=== PATIENT | female | born 1985 | race Hispanic/Latino ===

== ENCOUNTER 2016-05-12 10:54 | Emergency (ER) | payer OTHER ==
[~2016-05-12] VITALS: Ht 165.1 cm; Wt 52.2 kg
[~2016-05-12 10:54] MED LIST: AMOXICILLIN875 M1 PO; BACTRIM DS 8001 TAB PO; CLEOCIN100 MG VG; DIFLUCAN150 M1 PO; FLAG500 PO; FLAGYL500 MG PO; MOTRIN 600 MG600 MG PO; ORTHO TRI-CYCLE1 TA2 PO; ORTHO TRI-CYCLEN LO; PERCOCET 325 MG1 TA2 PO; PERCOCET 5-3251 EACH PO; PRILOSEC OTC20 M1 PO; VICODIN 5-3001 EACH PO; [UNRECOGNIZED DRUG - OTHER] TOP
--- NOTE | 2016-05-12 12:46 | ED HEAD/FACIAL INJ COMPLAINT ---
History of Present Illness General Chief Complaint: Facial or Head Injury Stated Complaint: LAC TO HEAD, +NAUSEA, STILL BLEEDING Source: patient, old records Exam Limitations: no limitations Vital Signs & Intake/Output Vital Signs & Intake/Output Vital Signs Date Time Temp Pulse Resp B/P Pulse O2 O2 Flow FiO2 Ox Delivery Rate 05/12 1300 99 05/12 1300 96.7 57 16 102/62 99 Room Air 05/12 1059 97.3 60 20 103/64 98 Room Air Allergies Coded Allergies: NO KNOWN ALLERGIES (08/31/14) Reconcile Medications Amoxicillin 875 MG TABLET 1 TAB PO BID INFECTION Clindamycin Phosphate (Cleocin) 100 MG SUPP.VAG 1 SUP VG QPM bv Fluconazole (Diflucan) 150 MG TABLET 1 TAB PO ONCE vaginal discharge take in 1 week if you continue with discharge Hydrocodone/Acetaminophen (Vicodin 5-300 MG Tablet) 1 EACH TABLET 1 TAB PO Q8 PRN BREAKTHROUGH PAIN Omeprazole Magnesium (Prilosec Otc) 20 MG TABLET.DR 1 TAB PO DAILY REFLUX Oxycodone HCl/Acetaminophen (Percocet 5-325 MG Tablet) 5 MG-325 MG TABLET 1 TAB PO 4XDP PRN PAIN FOUR...[id number] Triage Note: HIT TOP OF HEAD ON DAUGHTERS BUNK BED YESTERDAY AND IT STARTED BLEEDING AGAIN TODAY. DRIED BLOOD NOTED TO TOP OF HEAD IN TRIAGE. PT STATES SHE FELT NAUSEOUS THIS MORNING Triage Nurses Notes Reviewed? yes Onset: 1.5 DAYS Severity: mild, moderate Severity Numbers: 5 Location: global Method of Injury: direct blow Loss of Consciousness: no loss of consciousness Associated Symptoms: DENIES : No Patient currently breastfeeds: No HPI: 30-year-old female presents emergency room complaining of a generalized headache constant for the past 1-1/2 day associated with feeling "foggy and intermittently nauseous. The patient states that she hit the top of her head against her daughter's bed last night and there is no loss of consciousness however she states it was bleeding and she noticed some blood on a tissue today when she touched it. She has not taken anything for her symptoms she denies any other injury no neck or back pain. Patient denies any vision changes vomiting. No modifying factors or associated symptoms otherwise. She's reports having difficulty concentrating today (RAÚL TAYLOR,JORDAN) Past History Travel History Traveled to [place] past 21 day No Medical History Any Pertinent Medical History? 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 No (JORDAN HOLLINS) Review of Systems Review of Systems Constitutional: Reports: see HPI. All Other Systems: Reviewed and Negative Comments Review of systems: See HPI, All other systems negative. Constitutional, no chills no fever, no malaise HEENT: No visual changes no sore throat no congestion Cardiovascular: No chest pain , no palpitation Skin, no rashes, no change in skin Respiratory: No dyspnea no cough no sputum GI: No nausea no vomiting, no diarrhea, : No dysuria Muscle skeletal: No joint pain, no back pain, no neck pain, Neurologic: No numbness headache Psych: No stress Heme/endocrine: No bruising no bleeding Immunology: No lymphadenopathy, (JORDAN HOLLINS) Physical Exam Physical Exam General Appearance: well developed/nourished, alert, awake Cranial Nerves: normal hearing, normal speech, PERRL Comments: Well-developed well-nourished patient in no apparent distress. HEENT: Superficial abrasion noted to the right parietal scalp, there is no active bleeding dry blood noted there is no laceration, the face and rest and scalp are atraumatic no hematoma no ecchymosis mild tenderness on palpation pupils are equal round reactive to light extraocular motion intact Neck: Supple, FROM, Back: FROM, Nontender Cardiovascular: Regular rate and rhythms no murmurs rubs Respiratory: No respiratory distress. Patient speaking in full complete sentences. Breath sounds clear to auscultation bilaterally: NO W/R/R Extremities: full range of motion Neuro: Alert and oriented x3 Skin: Warm & dry;No appreciable rash on exposed skin Psych: Mood affect normal, normal memory normal judgment. (JORDAN HOLLINS) Progress Differential Diagnosis: ICH, skull fracture, CONCUSSION Plan of Care: Current Medications Sig/Ngozi Start time Last Medication Dose Stop Time Status Admin Ibuprofen 600 MG ONCE ONE 05/12 1300 UNVr (Motrin) 05/12 1301 The wound was irrigated there is no laceration requiring closure with ranjeet I discussed the patient's this symptoms have been greater than 12 hours I discussed with her most likely etiology is concussion I do not believe she'll require CT imaging I discussed with her need for brain rest I had an extensive conversation regarding need for close follow up with their primary care physician this week as well as return precautions. I answered all of their questions, they feel comfortable with the plan and follow-up care. (JORDAN HOLLINS) Departure Departure Time of Disposition: 1251 Disposition: HOME OR SELF CARE Condition: Stable Clinical Impression Primary Impression: Minor head injury without loss of consciousness Secondary Impressions: Post concussive syndrome, Scalp abrasion Referrals: SARAH JOE (PCP/Family) Additional Instructions: Tylenol or Motrin every 4-6 hours, brain rest limited TV cell phone computer usage as this may make her symptoms worse, follow-up with her primary care physician this week return anytime sooner with any concerns. Departure Forms: Customer Survey General Discharge Information (JORDAN HOLLINS) PA/TECHNICAL ADJUSTER Co-Sign Statement Statement: ED Attending supervision documentation- [] I saw and evaluated the patient. I have also reviewed all the pertinent lab results and diagnostic results. I agree with the findings and the plan of care as documented in the PA's/TECHNICAL ADJUSTER's documentation. x I have reviewed the ED Record and agree with the PA's/TECHNICAL ADJUSTER's documentation. [] Additions or exceptions (if any) to the PAs/TECHNICAL ADJUSTER's note and plan are summarized below: [] (SYBIL LOWERY,TC)
[2016-05-12 13:00] VITALS: BP 102/62
== END 2016-05-12 13:12 ==
LOC: ERH 10:54
DX: S09.90XA Unspecified injury of head, initial encounter (principal); F07.81 Postconcussional syndrome; S00.01XA Abrasion of scalp, initial encounter; W22.03XA Walked into furniture, initial encounter; Y93.9 Activity, unspecified; Y92.9 Unspecified place or not applicable

== ENCOUNTER 2017-09-15 22:18 | Emergency (ER) | payer OTHER ==
[2017-09-16] MEDS ORDERED: PERCOCET 5-3251 EACH PO (00:36)
--- NOTE | 2017-09-16 00:38 | ED GENERAL ADULT ---
History of Present Illness General Chief Complaint: Sore Throat, Dental Pain Stated Complaint: "RT SIDE DENTAL PAIN" Source: patient Exam Limitations: no limitations Vital Signs & Intake/Output Vital Signs & Intake/Output Vital Signs Date Time Temp Pulse Resp B/P B/P Pulse O2 O2 Flow FiO2 Mean Ox Delivery Rate 09/15 2221 97.4 69 18 104/68 98 Room Air Allergies Coded Allergies: NO KNOWN ALLERGIES (08/31/14) Reconcile Medications Amoxicillin 875 MG TABLET 1 TAB PO BID INFECTION Clindamycin Phosphate (Cleocin) 100 MG SUPP.VAG 1 SUP VG QPM bv Fluconazole (Diflucan) 150 MG TABLET 1 TAB PO ONCE vaginal discharge take in 1 week if you continue with discharge Hydrocodone/Acetaminophen (Vicodin 5-300 MG Tablet) 1 EACH TABLET 1 TAB PO Q8 PRN BREAKTHROUGH PAIN Omeprazole Magnesium (Prilosec Otc) 20 MG TABLET.DR 1 TAB PO DAILY REFLUX Oxycodone HCl/Acetaminophen (Percocet 5-325 MG Tablet) 5 MG-325 MG TABLET 1 TAB PO 4XDP PRN PAIN FOUR...[id number] Oxycodone HCl/Acetaminophen (Percocet 5-325 MG Tablet) 5 MG-325 MG TABLET 1 TAB PO Q4-6 PRN PRN pain Triage Note: PT TO TRIAGE C/O R SIDED DENTAL PAIN S/P TOOTH FILLING YESTERDAY. PT STATES PAIN IS UNBEARABLE. PT TALKED TO DENTIST AND HAS APPT WEDNESDAY. STATES "THAT'S NOT GOING TO WORK." Triage Nurses Notes Reviewed? yes Onset: Gradual Duration: week(s): Timing: constant : No Patient currently breastfeeds: No HPI: 31 y/o otherwise healthy female presenting with right sided dental pain x several weeks Pt reports she saw her dentist and was told she needed multiple fillings on the right and left. She underwent the right fillings yesterday, and is scheduled for the left fillings on Wednesday, but still has persistent right sided pain. Has been using motrin without relief. Denies fevers or drainage. (Temi Roth) Past History Travel History Traveled to [place] past 21 day No Medical History Any Pertinent Medical History? 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 No (Temi Roth) Review of Systems Review of Systems Constitutional: Reports: no symptoms. EENTM: Reports: see HPI. Respiratory: Reports: no symptoms. Cardiovascular: Reports: no symptoms. GI: Reports: no symptoms. Genitourinary: Reports: no symptoms. Musculoskeletal: Reports: no symptoms. Skin: Reports: no symptoms. Neurological/Psychological: Reports: no symptoms. Hematologic/Endocrine: Reports: no symptoms. Immunologic/Allergic: Reports: no symptoms. All Other Systems: Reviewed and Negative (Temi Roth) Physical Exam Physical Exam General Appearance: well developed/nourished, alert, awake, appears uncomfortable holding her right jaw Head: atraumatic, normal appearance Eyes: Bilateral: normal appearance. Ears, Nose, Throat: pt has right lower wisdom tooth that is erupting on an angle and becoming impacted, +TTP over the right lower wisdom tooth. No TTP with tooth thrust over the remaining right lower teeth. Normal gingiva. No abcess or drainage. Remainder of oral cavity exam is unremarkable. Neck: normal inspection, no edema Respiratory: normal breath sounds, lungs clear Cardiovascular: regular rate/rhythm Gastrointestinal: soft, non-tender Back: normal inspection Extremities: normal inspection Neurologic/Psych: awake, alert, oriented x 3, normal gait, normal mood/affect Skin: intact, normal color, warm/dry Core Measures ACS in differential dx? No CVA/TIA Diagnosis: No Sepsis Present: No Sepsis Focused Exam Completed? No (Temi Roth) Progress Differential Diagnoses I considered the following diagnoses in my evaluation of the patient: [impacted [place] tooth vs gingival abscess vs apical abscess vs dental fx] Plan of Care: Pain likel 2/2 erupting/impacted right lower wisdom tooth, given rx percocet for pain and instrcuted to f/u with dentits as scheduled on Wednesday. Low concern for infection, therefore abx deferred at this time. Given strict return precautions. Initial ED EKG: none (Temi Roth) Departure Departure Disposition: HOME OR SELF CARE Condition: Stable Clinical Impression Primary Impression: Pain, dental Referrals: Anita Whittaker APRN (PCP/Family) Additional Instructions: Continue using 800 mg of ibuprofen as needed for pain. You may combine this medication with Percocet for additional pain relief. Follow-up with your dentist as scheduled on Wednesday. Return to the emergency department for any normal worsening symptoms. Departure Forms: Customer Survey General Discharge Information Prescriptions: Current Visit Scripts Oxycodone HCl/Acetaminophen (Percocet 5-325 MG Tablet) 1 TAB PO Q4-6 PRN PRN pain #12 TAB (Tmei Roth) PA/SQUARE DANCE CALLER Co-Sign Statement Statement: ED Attending supervision documentation- I saw and evaluated the patient. I have also reviewed all the pertinent lab results and diagnostic results. I agree with the findings and the plan of care as documented in the PA's/SQUARE DANCE CALLER's documentation. x I have reviewed the ED Record and agree with the PA's/SQUARE DANCE CALLER's documentation. [] Additions or exceptions (if any) to the PAs/SQUARE DANCE CALLER's note and plan are summarized below: [] (Juan Carlos LOWERY,Colt) Critical Care Note Critical Care Note Critical Care Time: non-applicable (Temi Roth)
[2017-09-16 00:42] VITALS: BP 112/56
== END 2017-09-16 00:44 ==
LOC: ERH 22:18
DX: K08.89 Other specified disorders of teeth and supporting structures (principal)